=== PATIENT | female | born 1930 | race Hispanic/Latino ===

== ENCOUNTER → 2020-02-02 | Outpatient (CLI) | payer OTHER | END | disposition home or self-care (01) | LOC: SHCH 08:04 | PROVIDERS: ATTEND Internal Medicine Cardiovascular Disease | DX: R55 Syncope and collapse (principal); I10 Essential (primary) hypertension | CPT/HCPCS: 93975 ==

== ENCOUNTER 2021-05-27 14:33 | Emergency (ER) | payer OTHER ==
[~2021-05-27] VITALS: Ht 149.9 cm; Wt 40.8 kg
[2021-05-27 15:17] LABS: BASOPHILS % (AUTO) 0.3 % (0.0-5.0); EOSINOPHILS % (AUTO) 7.8 % (0.0-8.0); HEMATOCRIT 32.6 % (36-48); LYMPHOCYTES % (AUTO) 26.5 % (21.0-51.0); MEAN CORPUSCULAR HGB CONC 31.3 g/dL (32.0-36.0); MEAN CORPUSCULAR VOLUME 95.9 fL (79-99); MONOCYTES % (AUTO) 7.3 % (3.0-13.0); NEUTROPHILS % (AUTO) 57.9 % (40.0-77.0); PLATELET COUNT (AUTO) 180 K/uL (130-400); WHITE BLOOD COUNT (AUTO) 5.9 K/uL (4.8-10.8)
[2021-05-27 15:27] LABS: CREATININE 1.1 mg/dL (0.5-1.5); POTASSIUM 3.9 mmol/L (3.5-5.1)
[2021-05-27 15:32] LABS: ALBUMIN 3.7 g/dL (3.5-5.0); BILIRUBIN,TOTAL 0.3 mg/dL (0.2-1.0)
[2021-05-27 15:35] LABS: INR 0.98 (0.85-1.15); PROTHROMBIN TIME 10.7 SEC (9.6-11.6)
[2021-05-27 15:36] LABS: PARTIAL THROMBOPLASTIN TIME 27.1 SEC (26.3-35.5)
== END 2021-05-27 17:01 | disposition left against medical advice (07) ==
LOC: EDH 14:33
DX: H57.89 Other specified disorders of eye and adnexa (principal); Z53.21 Procedure and treatment not carried out due to patient leaving prior to being seen by health care provider
CPT/HCPCS: 36415; 80053; 85025; 85610; 85730

== ENCOUNTER 2021-09-16 12:44 | Observation (INO) | payer OTHER ==
[~2021-09-16] VITALS: Ht 149.9 cm; Wt 40.8 kg
[2021-09-16 12:46] VITALS: BP 149/57
[2021-09-16 13:17] LABS: BASOPHILS % (AUTO) 0.6 % (0.0-5.0); EOSINOPHILS % (AUTO) 2.5 % (0.0-8.0); HEMATOCRIT 31.8 % (36-48); LYMPHOCYTES % (AUTO) 21.5 % (21.0-51.0); MEAN CORPUSCULAR HEMOGLOBIN 30.4 pg (27.0-33.0); MEAN CORPUSCULAR HGB CONC 32.1 g/dL (32.0-36.0); MEAN CORPUSCULAR VOLUME 94.9 fL (79-99); MONOCYTES % (AUTO) 7.6 % (3.0-13.0); NEUTROPHILS % (AUTO) 67.4 % (40.0-77.0); PLATELET COUNT (AUTO) 160 K/uL (130-400); RED BLOOD CELL COUNT(AUTO) 3.35 MIL/uL (4.00-5.50); RED CELL DISTRIBUTION WIDTH 12.8 % (11.0-15.5); WHITE BLOOD COUNT (AUTO) 5.3 K/uL (4.8-10.8)
[2021-09-16 13:32] LABS: ALANINE AMINOTRANSFERASE 22 U/L (12-78); ALBUMIN 2.8 g/dL (3.5-5.0); ASPARTATE AMINOTRANSFERASE 21 U/L (10-37); BILIRUBIN,TOTAL 0.5 mg/dL (0.2-1.0); CARBON DIOXIDE 27 mmol/L (21-32); CHLORIDE 112 mmol/L (101-111); CREATININE 1.2 mg/dL (0.5-1.5); GLOMERULAR FILTR. RATE CALC 45 mL/min (>60); GLUCOSE,RANDOM 93 mg/dL (70-105); SODIUM SERUM 147 mmol/L (136-145); TOTAL PROTEIN, SERUM 6.1 g/dL (6.0-8.3); UREA NITROGEN, BLOOD 25 mg/dL (7-18)
[2021-09-16 13:34] LABS: CRP QUANTITATIVE < 2.00 mg/L (0.00-9.0)
[2021-09-16 13:38] LABS: B-TYPE NATRIURETIC PEPTIDE 244 pg/mL (0-100)
[2021-09-16] MEDS ORDERED: ONDANSETRON 4MG INJ IVP PRN (15:30)
[2021-09-16] MEDS ORDERED: LACTATED RINGERS 1000ML 1,000 ML IV SCH (15:30)
[2021-09-16] MEDS ORDERED: ACETAMINOPHEN 650 MG SUPPOSITORY RC PRN (15:30)
[2021-09-16] MEDS ORDERED: ACETAMINOPHEN 325 MG TAB PO PRN (15:30)
[2021-09-16] MEDS ORDERED: ASPIRIN 325MG TAB PO ONE (17:00)
[2021-09-17] MEDS ORDERED: ASPIRIN 81MG CHEW TAB PO SCH (09:00)
[2021-09-17] MEDS ORDERED: PANTOPRAZOLE 40 MG TAB DR PO SCH (09:00)
[2021-09-17] MEDS ORDERED: ENOXAPARIN SODIUM 40 MG/0.4 ML SYRINGE SQ SCH (09:00)
== END 2021-09-16 15:22 | disposition left against medical advice (07) ==
LOC: EDH 12:44 → EDHIP 15:22
PROVIDERS: ADMIT Internal Medicine Pulmonary Disease; ATTEND Internal Medicine Pulmonary Disease
DX: R55 Syncope and collapse (principal); R00.1 Bradycardia, unspecified; I10 Essential (primary) hypertension; R79.89 Other specified abnormal findings of blood chemistry; G31.9 Degenerative disease of nervous system, unspecified; J44.9 Chronic obstructive pulmonary disease, unspecified; E03.9 Hypothyroidism, unspecified; F03.90 Unspecified dementia, unspecified severity, without behavioral disturbance, psychotic disturbance, mood disturbance, and anxiety; Z86.16 Personal history of COVID-19; Z79.899 Other long term (current) drug therapy
CPT/HCPCS: 36415; 70450; 71045; 80053; 83880; 84484; 85025; 86140; 93005; 99285; G0378

== ENCOUNTER 2021-09-19 14:54 | Observation (INO) | payer OTHER ==
[~2021-09-19] VITALS: Ht 157.5 cm; Wt 45.7 kg
[2021-09-19] MEDS ORDERED: NIFEDIPINE 10 MG CAP PO SCH (15:30)
[2021-09-19 15:32] LABS: BASOPHILS % (AUTO) 0.5 % (0.0-5.0); EOSINOPHILS % (AUTO) 2.1 % (0.0-8.0); HEMATOCRIT 32.7 % (36-48); LYMPHOCYTES % (AUTO) 25.4 % (21.0-51.0); MEAN CORPUSCULAR HEMOGLOBIN 30.3 pg (27.0-33.0); MEAN CORPUSCULAR HGB CONC 32.1 g/dL (32.0-36.0); MEAN CORPUSCULAR VOLUME 94.5 fL (79-99); NEUTROPHILS % (AUTO) 64.7 % (40.0-77.0); PLATELET COUNT (AUTO) 169 K/uL (130-400); RED BLOOD CELL COUNT(AUTO) 3.46 MIL/uL (4.00-5.50); RED CELL DISTRIBUTION WIDTH 12.7 % (11.0-15.5); WHITE BLOOD COUNT (AUTO) 5.8 K/uL (4.8-10.8)
[2021-09-19 15:32] LABS: APPEARANCE,URINE CLEAR (CLEAR); BILIRUBIN,URINE NEGATIVE (NEGATIVE); COLOR,URINE YELLOW (YELLOW); GLUCOSE, URINE (UA) NEGATIVE (NEGATIVE); KETONES,URINE NEGATIVE (NEGATIVE); LEUKOCYTE ESTERASE ,URINE NEGATIVE (NEGATIVE); NITRATE,URINE POSITIVE (NEGATIVE); OCCULT BLOOD,URINE TRACE-INTACT (NEGATIVE); PROTEIN,URINE 100 mg/dL (NEGATIVE); UROBILINOGEN,URINE 0.2 mg/dL (0.2-1.0)
[2021-09-19 15:40] LABS: BACTERIA,URINE Rare /HPF (None Seen); HYALINE CASTS, URINE 0-1 /LPF (0-1 /LPF); MUCUS,URINE Rare LPF (None Seen); SQUAMOUS EPITHELIAL CELL,UR Rare /HPF (0-2); WBC,URINE 0-1 /HPF (0-1)
[2021-09-19] MEDS ORDERED: NIFEDIPINE 10 MG CAP ONE (15:45)
[2021-09-19 15:59] LABS: CREATININE 1.3 mg/dL (0.5-1.5)
[2021-09-19 16:01] LABS: ALBUMIN 3.6 g/dL (3.5-5.0); BILIRUBIN,TOTAL 0.3 mg/dL (0.2-1.0); TOTAL PROTEIN, SERUM 6.4 g/dL (6.0-8.3)
[2021-09-19] MEDS ORDERED: ASPIRIN 325MG TAB ONE (16:15)
[2021-09-19] MEDS ORDERED: NITROGLYCERIN 1GM OINT 1 INCH/1GM TD ONE ×2 (16:16→16:30)
[2021-09-19] MEDS ORDERED: ASPIRIN 325MG TAB PO ONE (16:30)
[2021-09-19] MEDS ORDERED: LACTULOSE 20 GM/30 ML UDCUP PO PRN (17:30)
[2021-09-19] MEDS ORDERED: TEMAZEPAM 15 MG CAPSULE PO PRN (17:30)
[2021-09-19] MEDS ORDERED: ONDANSETRON 4MG INJ IVP PRN (17:30)
[2021-09-19] MEDS ORDERED: CLONIDINE HCL 0.1 MG TABLET PO PRN (17:30)
[2021-09-19] MEDS ORDERED: ACETAMINOPHEN 325 MG TAB PO PRN (17:30)
[2021-09-19] MEDS ORDERED: ACETAMINOPHEN 650 MG SUPPOSITORY RC PRN (17:30)
[2021-09-19] MEDS ORDERED: HYDRALAZINE 20MG/ML VIAL IV PRN (17:30)
[2021-09-19] MEDS: SIMVASTATIN 20 MG TABLET PO SCH (20:28)
[2021-09-19] MEDS: METOPROLOL TARTRATE 25 MG TAB PO SCH (20:28)
[2021-09-19] MEDS ORDERED: LEVO50CA4 PO (22:00)
[2021-09-19] MEDS ORDERED: ENAL5TAB17 PO (22:00)
[2021-09-19] MEDS ORDERED: FISH1CAP20 PO (22:00)
[2021-09-19] MEDS ORDERED: RALO60TA13 PO (22:00)
[2021-09-20 06:17] LABS: BASOPHILS % (AUTO) 0.5 % (0.0-5.0); EOSINOPHILS % (AUTO) 3.7 % (0.0-8.0); HEMATOCRIT 31.5 % (36-48); LYMPHOCYTES % (AUTO) 21.5 % (21.0-51.0); MEAN CORPUSCULAR HEMOGLOBIN 30.3 pg (27.0-33.0); MEAN CORPUSCULAR HGB CONC 32.1 g/dL (32.0-36.0); MEAN CORPUSCULAR VOLUME 94.6 fL (79-99); MONOCYTES % (AUTO) 6.8 % (3.0-13.0); NEUTROPHILS % (AUTO) 67.2 % (40.0-77.0); PLATELET COUNT (AUTO) 171 K/uL (130-400); RED BLOOD CELL COUNT(AUTO) 3.33 MIL/uL (4.00-5.50); RED CELL DISTRIBUTION WIDTH 12.9 % (11.0-15.5); WHITE BLOOD COUNT (AUTO) 6.6 K/uL (4.8-10.8)
[2021-09-20 06:43] LABS: CREATININE 1.3 mg/dL (0.5-1.5); PHOSPHORUS 3.8 mg/dL (2.5-4.9); POTASSIUM 4.3 mmol/L (3.5-5.1); THYROID STIMULATING HORMONE 6.74 uIU/mL (0.36-3.74)
[2021-09-20] MEDS: LEVOTHYROXINE 50 MCG TABLET PO SCH (06:48)
[2021-09-20] MEDS: ASPIRIN 81MG CHEW TAB PO SCH (08:39)
[2021-09-20] MEDS: FISH OIL 1000 MG/CAP PO SCH (08:39)
[2021-09-20] MEDS: METOPROLOL TARTRATE 25 MG TAB PO SCH ×2 (08:39→21:46)
[2021-09-20] MEDS: AMLODIPINE 5 MG TAB PO SCH (08:39)
[2021-09-20] MEDS ORDERED: ENALAPRIL MALEATE 5 MG TAB PO SCH (09:00)
[2021-09-20 21:35] VITALS: BP 188/78
[2021-09-20] MEDS: SIMVASTATIN 20 MG TABLET PO SCH (21:46)
[2021-09-20 23:45] VITALS: BP 164/60
[2021-09-21 04:05] VITALS: BP 165/66
[2021-09-21 04:28] LABS: HEMATOCRIT 29.5 % (36-48); MEAN CORPUSCULAR HEMOGLOBIN 30.5 pg (27.0-33.0); MEAN CORPUSCULAR HGB CONC 32.5 g/dL (32.0-36.0); MEAN CORPUSCULAR VOLUME 93.7 fL (79-99); RED BLOOD CELL COUNT(AUTO) 3.15 MIL/uL (4.00-5.50); RED CELL DISTRIBUTION WIDTH 12.8 % (11.0-15.5); WHITE BLOOD COUNT (AUTO) 5.4 K/uL (4.8-10.8)
[2021-09-21 04:51] LABS: POTASSIUM 3.8 mmol/L (3.5-5.1)
[2021-09-21 07:30] VITALS: BP 140/71
[2021-09-21] MEDS: ASPIRIN 81MG CHEW TAB PO SCH (07:30)
[2021-09-21] MEDS: FISH OIL 1000 MG/CAP PO SCH (07:30)
[2021-09-21] MEDS: LEVOTHYROXINE 50 MCG TABLET PO SCH (07:30)
[2021-09-21] MEDS: AMLODIPINE 5 MG TAB PO SCH (07:30)
[2021-09-21] MEDS: METOPROLOL TARTRATE 25 MG TAB PO SCH (07:31)
[2021-09-21 11:00] VITALS: BP 150/62
[2021-09-21] MEDS ORDERED: AMLO5TAB4 PO (14:28)
[2021-09-21] MEDS ORDERED: METO25 PO (14:28)
[2021-09-21 16:00] VITALS: BP 141/69
== END 2021-09-21 18:37 | disposition home or self-care (01) ==
LOC: EDH 14:54 → EDHIP 17:06 → INTOOBSV 17:06 → 4BH 09-20 20:42
PROVIDERS: ADMIT Internal Medicine Critical Care Medicine; ATTEND Internal Medicine Critical Care Medicine
DX: I16.0 Hypertensive urgency (principal); I21.4 Non-ST elevation (NSTEMI) myocardial infarction; I13.0 Hypertensive heart and chronic kidney disease with heart failure and stage 1 through stage 4 chronic kidney disease, or unspecified chronic kidney disease; I50.30 Unspecified diastolic (congestive) heart failure; N18.30 Chronic kidney disease, stage 3 unspecified; D63.1 Anemia in chronic kidney disease; I24.9 Acute ischemic heart disease, unspecified; J43.9 Emphysema, unspecified; E78.5 Hyperlipidemia, unspecified; E03.9 Hypothyroidism, unspecified; E78.00 Pure hypercholesterolemia, unspecified; R77.8 Other specified abnormalities of plasma proteins; Z79.82 Long term (current) use of aspirin; Z86.16 Personal history of COVID-19; Z79.899 Other long term (current) drug therapy
CPT/HCPCS: 36415 ×3; 71045; 71250; 78582; 80048 ×2; 80053; 81001; 82550 ×3; 83735; 83874 ×3; 83880; 84100; 84443; 84484 ×4; 85025 ×2; 85027; 85378; 87088; 93005; 99285; A9540; A9558; G0378 ×28